=== PATIENT | male | born 1940 | race Caucasian/White ===

== ENCOUNTER 2020-07-09 15:57 | Inpatient (IN) | payer MEDICARE, BC, OTHER ==
[2020-07-09] MEDS ORDERED: Acetaminophen 325 MG TAB PO PRN (18:00)
[2020-07-09] MEDS ORDERED: Ondansetron ODT 4 MG TAB SL PRN (18:00)
[2020-07-09] MEDS ORDERED: Ondansetron PF 4 MG/2 ML Vial IVP PRN (18:00)
[2020-07-09 18:15] VITALS: BMI 25.3
[2020-07-09 18:38] LABS: #Eosinphils 0.1 thou/uL (0.0-0.7); #Lymphocytes 1.1 thou/uL (1.20-3.40); #Neutrophils 13.9 thou/uL (1.40-6.50); %Basophils 0.2 % (0.0-1.0); %Eosinophils 0.4 % (0.0-10.0); %Lymphocytes 6.6 % (21.0-51.0); %Monocytes 6.4 % (0.0-10.0); %Neutrophils 86.5 % (42.0-75.0); Hemoglobin 8.4 g/dL (14.0-18.0); Mean Corpuscular HGB CONC 31.9 g/dL (32.0-36.0); Mean Corpuscular Hemoglobin 26.7 pg (27.0-31.0); Mean Corpuscular Volume 83.7 fL (78.0-98.0); Mean Platelet Volume 6.2 fL (7.4-10.4); Platelet Count 572 thou/uL (130-400); RBC Distribution Width 13.9 % (11.5-14.5); Red Blood Cell (RBC) Count 3.12 mill/uL (4.70-6.10); White Blood Cell (WBC) Count 16.1 thou/uL (4.8-10.8)
[2020-07-09 19:21] LABS: ALT (SGPT) 13 U/L (8-55); AST (SGOT) 15 U/L (5-34); Albumin 2.7 g/dL (3.4-4.8); Alkaline Phosphatase 94 U/L (40-110); Anion Gap 13 mmol/L (10-20); BUN (Urea Nitrogen) 28 mg/dL (8.4-25.7); Bilirubin, Total 0.3 mg/dL (0.2-1.2); Calc. Creatinine Clearance 50 mL/min (70-130); Calcium 8.5 mg/dL (7.8-10.44); Carbon Dioxide 27 mmol/L (23-31); Chloride 99 mmol/L (98-107); Estimated GFR-MDRD 53; Globulin 3.8 g/dL (2.4-3.5); Glucose 202 mg/dL (83-110); Potassium 4.2 mmol/L (3.5-5.1); Protein, Total 6.5 g/dL (5.8-8.1); Sodium 135 mmol/L (136-145)
[2020-07-09] MEDS ORDERED: Acetaminophen 500 MG TAB PO PRN (20:00)
[2020-07-09] MEDS ORDERED: Dextrose 50% Abboject 50 ML SYRINGE SLOW IVP PRN (20:03)
[2020-07-09] MEDS ORDERED: Dextrose 5% in Water 1,000 ML IV PRN (20:03)
[2020-07-09] MEDS: traMADol HCl 50 MG TAB PO PRN (20:46)
[2020-07-09] MEDS: Furosemide 40 MG/4 ML VIAL SLOW IVP SCH (20:47)
[2020-07-09] MEDS: Insulin Glargine 25 UNITS in Pre-Filled Syringe 1 EACH SC SCH (20:53)
[2020-07-09] MEDS ORDERED: Non-Formulary Item 1 EACH (Insulin Glargine,Hum.Rec.Anlog [Lantus Solostar] 100 UNIT/ML P SC SCH (21:00)
[2020-07-09] MEDS ORDERED: Famotidine 20 MG TAB PO SCH (21:00)
[2020-07-09] MEDS ORDERED: Cefepime 2 GM in Sodium Chloride 0.9% 100 ML IVPB SCH (21:00)
[2020-07-09] MEDS ORDERED: Furosemide 40 MG/4 ML VIAL SLOW IVP SCH (21:00)
[2020-07-09] MEDS ORDERED: Vancomycin HCl 1.5 GM in Sodium Chloride 0.9% 250 ML 300 ML IVPB SCH (21:00)
[2020-07-09] MEDS: Insulin Regular 300 UNITS/3 ML VIAL SC PRN (21:10)
--- NOTE | 2020-07-09 21:48 | HP ---
PRIMARY CARE PHYSICIAN: Dr. Merritt. CHIEF COMPLAINT: Lower leg swelling. HISTORY OF PRESENT ILLNESS: The patient is an 80-year-old male with past medical history significant for diabetes, hypertension, urinary retention, and GERD who presented to the ER today for significant bilateral lower extremity swelling with weeping. He states the swelling has been going on for about 3 to 4 weeks and he has had weeping of fluid for the past few days. The left leg is considerably worse and has more erythema. The patient states the left leg has been swollen ever since he had his CABG years ago, but not to the extent that it is now. He denies any fevers, chest pain, abdominal pain, changes in medications, injury, or trauma to the legs. The patient does present with an indwelling Houser catheter. He states that it was placed 6 to 7 days ago due to urine retention. He recently had a prostate biopsy on June 25 of this year, but he is still awaiting the results. It was also noted in the ER that the patient had a history of a hemoglobin in the 14s, but today it was 7.8. The patient does not note any blood in his stools, but states that he has been passing smaller and fewer bowel movements than before. The patient is pale in color, but he states this is normal. He did not complain that he has become any weaker recently. Today in the [place] [facility], they completed the abdomen and pelvis CT, hip x-ray, chest x-ray, lab work, and medication administration. They gave him hydrocodone with Tylenol 1 tablet, vancomycin IV 1.5 g, cefepime IV 2 g, and furosemide 40 mg IV prior to his transfer to [place] as a direct admit. PAST MEDICAL HISTORY: Hypertension; CAD; diabetes type 2, on insulin; GERD; hyperlipidemia; venous insufficiency in his left leg; and spondylosis of lumbar spine. PAST SURGICAL HISTORY: CABG, recent prostate biopsy. ALLERGIES: NO KNOWN DRUG ALLERGIES. CURRENT HOME MEDICATIONS: 1. Tramadol 50 mg p.o. q.8 hours. 2. Metoprolol 25 mg p.o. daily. 3. Tylenol 1000 mg p.o. q.6 hours p.r.n. 4. Rosuvastatin calcium 20 mg p.o. daily. 5. Pantoprazole 40 mg p.o. b.i.d. 6. Regular insulin 5 units subcu daily with meals. 7. Lantus 25 units subcu at night. 8. Metformin 1000 mg p.o. b.i.d. 9. Glipizide 10 mg p.o. b.i.d. 10. Flomax 0.4 mg p.o. daily. SOCIAL HISTORY: The patient lives at home alone. He denies any alcohol, drug, or smoking history. FAMILY HISTORY: Nothing contributory to this hospital visit. REVIEW OF SYSTEMS: All other review of systems are negative unless noted in the HPI. PHYSICAL EXAMINATION: VITAL SIGNS: Temperature 97.8, pulse 99, respiratory rate 18, O2 saturation 98% on room air, blood pressure 142/65. Afebrile, normal pulse. Vital signs stable. GENERAL: Pale-appearing, appears pain-free. HEENT: Head; atraumatic, normocephalic. Eyes; extraocular muscles intact. PERRLA. NECK: Normal range of motion. Trachea midline. RESPIRATORY: Clear to auscultation bilaterally. No rhonchi, no wheezes, no rales. CARDIOVASCULAR: Regular rate and rhythm. No murmurs, no rubs, no gallops. ABDOMEN: Nontender. No distention. No guarding. No rigidity. Bowel sounds normal. EXTREMITIES: Upper extremity normal. Inspection normal. Range of motion normal. Radial pulse normal. Lower extremity, extensive edema bilaterally, left worse than right. Cellulitis present in the upper portion of his lower left leg, weeping from both legs. LABORATORY DATA AND IMAGING DATA: Abdomen and pelvis CT with contrast showed an obstructive uropathy with severe bilateral hydronephrosis and hydroureters. The prostate is enlarged and has progressive enlargement and nodularity since the prior exam and involves the floor of the bladder. Prostatic neoplasm with invasion of the floor the bladder should be excluded. This is in turn producing bilateral UVJ obstruction and hydronephrosis. Severe bladder wall thickening. Urology consultation is recommended. Hip x-ray showed mild osteoarthritis of left hip and second hip x-ray shows moderate osteoarthritis of the right hip. Chest x-ray showed no acute cardiopulmonary findings. White blood cells 14.3, hemoglobin 7.8, hematocrit 26.6. D-dimer 0.55. Chemistry shows sodium 138, potassium 4.5, BUN 28, creatinine 1.15, GFR 61, glucose 155, calcium 8.5. CK 18, CRP 6.93, BNP 101.7. Urine shows protein and blood. It does show 1+ bacteria along with some squamous epithelial cells. IMPRESSION AND PLAN: 1. Lower extremity cellulitis. We will continue patient on IV antibiotics. The patient has been afebrile; however, he does have leukocytosis. We will continue to trend his labs to see if antibiotics are improving his infection. Wound Care Team has been asked to come and see his legs if they can offer any systems or treatment. We will obtain bilateral venous Doppler to rule out DVT in legs. 2. Anemia. Iron studies have been ordered for the patient along with occult blood stool sample to see if we can pinpoint if the patient is having a GI bleed or losing blood elsewhere. We will continue to monitor patient's labs. We will monitor for signs of bleeding. 3. Urinary retention and possible prostate cancer. Urology has been consulted for the morning. Hopefully, we will be able to receive the patient's prostate biopsy results soon and can decide course of treatment from there. We will continue the patient's home Houser. Urine culture to be sent. 4. Diabetes type 2. Restart patient on home medications except for metformin. We will hold that in lieu of receiving IV contrast with a CT. We will be able to start at a later time during hospital stay. Continue to monitor kidney levels. Monitor Accu-Cheks before meals and at bedtime mild sliding scale insulin. 5. Hypertension. Restart patient on his home medications. Monitor vital signs q.shift. 6. Hyperlipidemia. Restart patient on his home medications. 7. The patient wishes to be DNAR. His surrogate decision maker is his sister, Remigio Steen. 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 The patient has been discussed with Dr. Ruth. Job ID: [id number]
[2020-07-09] MEDS ORDERED: Vancomycin 1.5 GRAM/300 ML BAG 1.5 GM in Premix Bag 1 BAG IVPB SCH (22:00)
--- NOTE | 2020-07-09 22:24 | ULT ---
BILATERAL LOWER EXTREMITY VENOUS DUPLEX EXAM: Date: 07/09/2020 HISTORY: Bilateral leg pain and swelling. FINDINGS: Soft tissue edema changes are seen in both legs. Real-time color Doppler of right and left lower extr emity was performed from groin to calf. This includes evaluation of the common femoral, superficial a nd profunda femoral, saphenous, popliteal, and posterior tibial veins. This shows patent deep venous systems bilaterally. There is normal compressibility and augmentation. There is no evidence of deep v enous thrombosis. IMPRESSION: No evidence of deep venous thrombosis of either lower extremity. POS: OFF
[2020-07-10] MEDS: Acetaminophen 500 MG TAB PO PRN ×2 (01:59→15:37)
[2020-07-10 03:57] LABS: #Eosinphils 0.1 thou/uL (0.0-0.7); #Lymphocytes 1.2 thou/uL (1.20-3.40); #Neutrophils 9.8 thou/uL (1.40-6.50); %Basophils 0.2 % (0.0-1.0); %Eosinophils 0.7 % (0.0-10.0); %Lymphocytes 9.8 % (21.0-51.0); %Monocytes 8.1 % (0.0-10.0); %Neutrophils 81.2 % (42.0-75.0); Hemoglobin 7.9 g/dL (14.0-18.0); Mean Corpuscular HGB CONC 31.3 g/dL (32.0-36.0); Mean Corpuscular Hemoglobin 25.9 pg (27.0-31.0); Mean Platelet Volume 6.2 fL (7.4-10.4); Platelet Count 548 thou/uL (130-400); RBC Distribution Width 13.8 % (11.5-14.5); Red Blood Cell (RBC) Count 3.04 mill/uL (4.70-6.10)
[2020-07-10 04:13] LABS: Anion Gap 14 mmol/L (10-20); BUN (Urea Nitrogen) 34 mg/dL (8.4-25.7); Calc. Creatinine Clearance 41 mL/min (70-130); Calcium 8.4 mg/dL (7.8-10.44); Carbon Dioxide 29 mmol/L (23-31); Chloride 96 mmol/L (98-107); Estimated GFR-MDRD 43; Glucose 145 mg/dL (83-110); Potassium 4.2 mmol/L (3.5-5.1); Sodium 135 mmol/L (136-145)
[2020-07-10] MEDS: Insulin Regular 300 UNITS/3 ML VIAL SC SCH (08:18)
[2020-07-10] MEDS: Furosemide 40 MG/4 ML VIAL SLOW IVP SCH ×2 (08:20→20:25)
[2020-07-10] MEDS: glipiZIDE 10 MG TAB PO SCH ×2 (08:20→17:09)
[2020-07-10] MEDS: Tamsulosin HCl 0.4 MG CAP PO SCH (08:21)
[2020-07-10] MEDS: Rosuvastatin 20 MG TAB PO SCH (08:21)
[2020-07-10] MEDS: Insulin Regular 300 UNITS/3 ML VIAL SC PRN ×2 (11:36→17:09)
[2020-07-10 12:05] LABS: SARS-CoV-2 MS2 Positive; SARS-CoV-2 N Gene Negative; SARS-CoV-2 S Gene Negative; SARS-CoV-2 by NAA Not Detected (NotDetected); SARS-CoV-2 orf1ab Negative
[2020-07-10] MEDS: Cefepime 2 GM in Sodium Chloride 0.9% 100 ML IVPB SCH (14:12)
[2020-07-10] MEDS: Vancomycin 1.5 GRAM/300 ML BAG 1.5 GM in Premix Bag 1 BAG IVPB SCH (14:50)
--- NOTE | 2020-07-10 16:02 | PDOC.HOSPP ---
- Subjective Encounter Date: 07/10/20 Encounter Time: 15:58 Subjective: Mr. Villeda was seen today in follow-up of venous stasis, with cellulitis. He does not have any new complaints. He says his legs are less painful today. The swelling is better. - Objective Vital Signs & Weight: Vital Signs (12 hours) Temp Pulse Resp BP BP Pulse Ox 07/10/20 15:44 97.5 F L 97 18 130/60 96 07/10/20 11:41 97.8 F 106 H 18 116/68 98 07/10/20 08:00 98 07/10/20 07:51 98.2 F 83 18 126/60 98 Weight Admit Weight 171 lb 12.8 oz Weight 171 lb 12.8 oz I&O: 07/09/20 07/10/20 07/11/20 06:59 06:59 06:59 Intake Total 1500 Output Total 2500 1250 Balance -1000 -1250 Result Diagrams: 07/10/20 03:38 07/10/20 03:38 Additional Labs: Accuchecks 07/10/20 07/10/20 07/09/20 11:34 05:51 21:13 POC Glucose 228 H 119 H 326 H Hospitalist ROS - Medication Medications: Active Medications Generic Name Dose Route Start Last Admin Trade Name Freq PRN Reason Stop Dose Admin Acetaminophen 1,000 mg 07/09/20 20:04 07/10/20 15:37 Acetaminophen 500 Mg Tab PO 1,000 mg Q6H PRN Administration Mild Pain (1-3) Furosemide 40 mg 07/09/20 21:00 07/10/20 08:20 Furosemide 40 Mg/4 Ml Vial SLOW IVP 40 mg Q12HR BRODERICK Administration Glipizide 10 mg 07/10/20 08:00 07/10/20 08:20 Glipizide 10 Mg Tab PO 10 mg BID-WM BRODERICK Administration Insulin Glargine 25 units/ 0.25 mls @ 0 mls/hr 07/09/20 21:00 07/09/20 20:53 Miscellaneous Medication SC 0.25 mls HS BRODERICK Administration Vancomycin HCl 1.5 gm/ Device 300 mls @ 200 mls/hr 07/10/20 15:00 07/10/20 14:50 IVPB 300 mls 1500 BRODERICK Administration Cefepime HCl 2 gm/ Sodium 100 mls @ 200 mls/hr 07/10/20 14:00 07/10/20 14:12 Chloride IVPB 100 mls 1400 BRODERICK Administration Insulin Human Regular 0 units 07/09/20 20:03 07/10/20 11:36 Insulin Regular 300 Units/3 Ml Vial SC 3 unit .MILD SLIDING SCALE PRN Administration Mild Correctional Scale Insulin Human Regular 0 units 07/09/20 20:03 07/09/20 21:10 Insulin Regular 300 Units/3 Ml Vial SC 4 unit .BEDTIME SLIDING SC PRN Administration Bedtime Correctional Scale Insulin Human Regular 5 units 07/10/20 07:30 07/10/20 08:18 Insulin Regular 300 Units/3 Ml Vial SC 5 unit DAILY-AC BRODERICK Administration Metoprolol Succinate 25 mg 07/10/20 09:00 07/10/20 08:20 Metoprolol Succinate Xl 25 Mg Tab PO 25 mg DAILY BRODERICK Administration Pantoprazole Sodium 40 mg 07/09/20 21:00 07/10/20 08:21 Pantoprazole 40 Mg Tab PO 40 mg BID BRODERICK Administration Rosuvastatin Calcium 20 mg 07/10/20 09:00 07/10/20 08:21 Rosuvastatin 20 Mg Tab PO 20 mg DAILY BRODERICK Administration Tamsulosin HCl 0.4 mg 07/10/20 09:00 07/10/20 08:21 Tamsulosin Hcl 0.4 Mg Cap PO 0.4 mg DAILY BRODERICK Administration Tramadol HCl 50 mg 07/09/20 20:04 07/09/20 20:46 Tramadol Hcl 50 Mg Tab PO 50 mg Q8H PRN Administration Moderate Pain (4-6) - Exam Eye: PERRL, anicteric sclera Heart: RRR, no murmur, no gallops, no rubs, normal peripheral pulses Respiratory: CTAB, no wheezes, no rales, no ronchi, normal chest expansion Gastrointestinal: soft, non-tender, non-distended, normal bowel sounds, no palpable masses, no hepatomegaly, no splenomegaly Extremities: no clubbing (legs are dressed- pictures noted), 1+ LE edema Hosp A/P (1) Cellulitis of both lower extremities Code(s): L03.115 - CELLULITIS OF RIGHT LOWER LIMB; L03.116 - CELLULITIS OF LEFT LOWER LIMB Status: Acute (2) Chronic venous stasis Code(s): I87.8 - OTHER SPECIFIED DISORDERS OF VEINS Status: Acute (3) CAD (coronary artery disease) Code(s): I25.10 - ATHSCL HEART DISEASE OF [place] CORONARY ARTERY W/O ANG PCTRS Status: Acute (4) Diabetes mellitus type 2 in nonobese Code(s): E11.9 - TYPE 2 DIABETES MELLITUS WITHOUT COMPLICATIONS Status: Chronic (5) Hypertension Code(s): I10 - ESSENTIAL (PRIMARY) HYPERTENSION Status: Chronic (6) Obstructive uropathy Code(s): N13.9 - OBSTRUCTIVE AND REFLUX UROPATHY, UNSPECIFIED Status: Acute (7) Prostate enlargement Code(s): N40.0 - BENIGN PROSTATIC HYPERPLASIA WITHOUT LOWER URINRY TRACT SYMP Status: Chronic (8) Acute kidney injury Code(s): N17.9 - ACUTE KIDNEY FAILURE, UNSPECIFIED Status: Acute - Plan * Chronic venous stasis changes with cellulitis- continue Cefepime and Vancomycin * Continue local wound care * DM- blood glucose is a bit labile- continue his home medications as well as SSI * Obstructive Uropathy with bilateral hydronephrosis due to prostatic enlargement- Urology has been consulted- continue connell * Await Urology input * HTN- blood pressure is controlled * CAD- stable
--- NOTE | 2020-07-10 20:11 | CON ---
DATE OF CONSULTATION: 07/10/2020 REASON FOR CONSULTATION: Hydronephrosis. CHIEF COMPLAINT: Leg wounds. HISTORY OF PRESENT ILLNESS: This is an 80-year-old male, who I have been following since June 20. At that point, he was referred to me from [facility], where he had been seen for retention and had a catheter placed draining over a liter. He has no prior history of bladder infections, retention, or prostate surgeries. He failed his initial void trial and upon further workup, he was found to have an abnormal MICHELLE. 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 I was unable to adequately see his ureters. However, recent creatinine was normal. He also underwent transrectal ultrasound biopsy of his pelvic mass. Early pathology suggest colon versus bladder cancer. Since his initial visit with me. I have been encouraging him to call his primary care provider to be seen about his leg wounds. However, he was unable to get through their office and decided he would wait for his visit in June. He was seen at [facility] yesterday for his leg wounds and CT scan at that time showed new onset bilateral hydronephrosis with normal creatinine of 1.15. He tells me that since his biopsy, he has not had fevers, rectal bleeding, or hematuria. Today, he denies flank pain, nausea, vomiting, or suprapubic pain. He has had a Houser catheter placed. However, his creatinine has continued to rise and is now 1.57 as of this morning. PAST MEDICAL HISTORY: Coronary artery disease status post CABG, diabetes, hypertension, and recent urinary retention. PAST SURGICAL HISTORY: CABG as listed above and prostate biopsy. ALLERGIES: NO KNOWN ALLERGIES. HOME MEDICATIONS: Reviewed. Pertinent urology medications include Flomax daily. SOCIAL HISTORY: The patient lives alone. Nonsmoker. No substance abuse. FAMILY HISTORY: Reviewed. No history of urologic malignancy. REVIEW OF SYSTEMS: A 12-point review of systems performed, negative except as mentioned in my HPI. PHYSICAL EXAMINATION: VITAL SIGNS: Afebrile, vitals stable. GENERAL: No acute distress, conversant. HEENT: Head, normocephalic and atraumatic. Extraocular movements intact. Sclerae anicteric. NECK: Supple. Trachea midline. Unlabored breathing. Symmetric chest expansion. HEART: Regular rate and rhythm. ABDOMEN: Soft, nontender, and nondistended. No CVA tenderness. No suprapubic tenderness. : Normal exam with Houser catheter in good position draining clear yellow urine. SKIN: Warm and dry. EXTREMITIES: No upper extremity edema, significant lower extremity edema, currently with bandages in place. No cyanosis. NEUROLOGIC: Alert and oriented x3. PSYCHIATRIC: Normal mood and affect. LABORATORY DATA: Reviewed. Creatinine 1.57. White count 12. Recent urine, moderate leukocyte esterase; however, this did appear contaminated. Urine culture, no growth at 12 hours. IMAGING DATA: I personally reviewed his CT scan, which does show bilateral hydronephrosis down to the level of the bladder neck or trigone of the bladder. He has a large mass at this point, which appears to be emanating from the prostate. However, this is in contrast to his early pathology results. 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 The patient will need cystoscopy with attempt at stent placement. I explained this procedure in detail to the patient including the risks of bleeding, infection, pain, and inability to place the stents, including the possible need for resection of his trigone. However, I still may be unable to place stents and we would have to consider if nephrostomy tubes are appropriate. We are still waiting on outside review of his recent pathology. N.P.O. after midnight. Job ID: [id number]
[2020-07-10] MEDS: Insulin Glargine 25 UNITS in Pre-Filled Syringe 1 EACH SC SCH (20:25)
[2020-07-10] MEDS: Heparin 5,000 UNITS/ML VIAL SC SCH (20:25)
[2020-07-11] MEDS: Acetaminophen 500 MG TAB PO PRN ×2 (02:04→08:11)
[2020-07-11] MEDS: traMADol HCl 50 MG TAB PO PRN ×2 (02:04→14:37)
[2020-07-11 06:13] LABS: #Lymphocytes 0.7 thou/uL (1.20-3.40); #Monocytes 0.9 thou/uL (0.11-0.59); #Neutrophils 10.7 thou/uL (1.40-6.50); %Basophils 0.4 % (0.0-1.0); %Eosinophils 0.4 % (0.0-10.0); %Lymphocytes 5.9 % (21.0-51.0); %Neutrophils 86.4 % (42.0-75.0); Hemoglobin 8.2 g/dL (14.0-18.0); Mean Corpuscular HGB CONC 31.3 g/dL (32.0-36.0); Mean Corpuscular Hemoglobin 26.1 pg (27.0-31.0); Mean Corpuscular Volume 83.5 fL (78.0-98.0); Platelet Count 547 thou/uL (130-400); Red Blood Cell (RBC) Count 3.15 mill/uL (4.70-6.10); White Blood Cell (WBC) Count 12.4 thou/uL (4.8-10.8)
[2020-07-11 06:36] LABS: Anion Gap 14 mmol/L (10-20); BUN (Urea Nitrogen) 38 mg/dL (8.4-25.7); Calc. Creatinine Clearance 47 mL/min (70-130); Calcium 8.3 mg/dL (7.8-10.44); Carbon Dioxide 28 mmol/L (23-31); Chloride 99 mmol/L (98-107); Estimated GFR-MDRD 49; Glucose 188 mg/dL (83-110); Potassium 3.9 mmol/L (3.5-5.1); Sodium 137 mmol/L (136-145)
[2020-07-11] MEDS: Heparin 5,000 UNITS/ML VIAL SC SCH ×2 (08:08→20:51)
[2020-07-11] MEDS: glipiZIDE 10 MG TAB PO SCH ×2 (08:08→18:36)
[2020-07-11] MEDS: Insulin Regular 300 UNITS/3 ML VIAL SC SCH (08:10)
[2020-07-11] MEDS: Rosuvastatin 20 MG TAB PO SCH (08:11)
[2020-07-11] MEDS: Tamsulosin HCl 0.4 MG CAP PO SCH (08:11)
[2020-07-11] MEDS: Furosemide 40 MG/4 ML VIAL SLOW IVP SCH ×2 (08:11→20:50)
[2020-07-11] MEDS ORDERED: Iothalamate Meglumine 60% 50 ML VIAL FS ONE (09:36)
[2020-07-11] MEDS ORDERED: Fentanyl 100 MCG/2 ML VIAL ONE ×3 (09:44→12:06)
[2020-07-11] MEDS ORDERED: Norepinephrine 4 MG/4 ML VIAL ONE (09:44)
[2020-07-11] MEDS ORDERED: PROPOFOL 200 MG/20 ML VIAL ONE (10:47)
[2020-07-11] MEDS ORDERED: Lidocaine 1% PF 5 ML VIAL ONE (10:47)
[2020-07-11] MEDS ORDERED: PHENYLEPHRINE-NS 100 MCG/ML 10 ML SYRINGE ONE (10:47)
[2020-07-11] MEDS ORDERED: Promethazine HCl 25 MG/ML VIAL SLOW IVP PRN (11:42)
[2020-07-11] MEDS ORDERED: PACU-Morphine 4MG/ML VIAL SLOW IVP PRN (11:42)
[2020-07-11] MEDS ORDERED: Ondansetron HCl/PF 4 MG/2 ML Vial IVP PRN (11:42)
[2020-07-11] MEDS ORDERED: Promethazine HCl 25 MG/ML VIAL IM PRN (11:42)
[2020-07-11] MEDS ORDERED: Oxybutynin 5 MG TAB ONE (12:18)
[2020-07-11] MEDS ORDERED: Oxybutynin 5 MG TAB PO PRN (12:34)
[2020-07-11] MEDS: Cefepime 2 GM in Sodium Chloride 0.9% 100 ML IVPB SCH (14:37)
--- NOTE | 2020-07-11 14:48 | PDOC.HOSPP ---
- Subjective Encounter Date: 07/11/20 Encounter Time: 14:46 Subjective: Mr. Villeda was seen today in follow-up of cellulitis of the lower extremities, and urine retention. He notes improvement in his lower extremities, less pain. - Objective Vital Signs & Weight: Vital Signs (12 hours) Temp Pulse Resp BP Pulse Ox 07/11/20 08:00 98.4 F 93 16 108/68 97 Weight Admit Weight 171 lb 12.8 oz Weight 171 lb 12.8 oz I&O: 07/10/20 07/11/20 07/12/20 06:59 06:59 06:59 Intake Total 1500 1380 2170 Output Total 2500 3500 3495 Balance -1000 -2120 -355 Result Diagrams: 07/11/20 06:03 07/11/20 06:03 Additional Labs: Accuchecks 07/11/20 07/10/20 07/10/20 05:18 20:13 15:55 POC Glucose 181 H 196 H 248 H Hospitalist ROS - Medication Medications: Active Medications Generic Name Dose Route Start Last Admin Trade Name Freq PRN Reason Stop Dose Admin Acetaminophen 1,000 mg 07/09/20 20:04 07/11/20 08:11 Acetaminophen 500 Mg Tab PO 1,000 mg Q6H PRN Administration Mild Pain (1-3) Furosemide 40 mg 07/09/20 21:00 07/11/20 08:11 Furosemide 40 Mg/4 Ml Vial SLOW IVP 40 mg Q12HR BRODERICK Administration Glipizide 10 mg 07/10/20 08:00 07/11/20 08:08 Glipizide 10 Mg Tab PO Not Given BID- BRODERICK Heparin Sodium (Porcine) 5,000 units 07/10/20 21:00 07/11/20 08:08 Heparin 5,000 Units/Ml Vial SC Not Given BID BRODERICK Insulin Glargine 25 units/ 0.25 mls @ 0 mls/hr 07/09/20 21:00 07/10/20 20:25 Miscellaneous Medication SC 0.25 mls HS BRODERICK Administration Vancomycin HCl 1.5 gm/ Device 300 mls @ 200 mls/hr 07/10/20 15:00 07/10/20 14:50 IVPB 300 mls 1500 BRODERICK Administration Cefepime HCl 2 gm/ Sodium 100 mls @ 200 mls/hr 07/10/20 14:00 10/14/20 14:37 Chloride IVPB 100 mls 1400 BRODERICK Administration Insulin Human Regular 0 units 07/09/20 20:03 07/10/20 17:09 Insulin Regular 300 Units/3 Ml Vial SC 3 unit .MILD SLIDING SCALE PRN Administration Mild Correctional Scale Insulin Human Regular 0 units 07/09/20 20:03 07/09/20 21:10 Insulin Regular 300 Units/3 Ml Vial SC 4 unit .BEDTIME SLIDING SC PRN Administration Bedtime Correctional Scale Insulin Human Regular 5 units 07/10/20 07:30 07/11/20 08:10 Insulin Regular 300 Units/3 Ml Vial SC 5 unit DAILY-AC BRODERICK Administration Metoprolol Succinate 25 mg 07/10/20 09:00 07/11/20 05:09 Metoprolol Succinate Xl 25 Mg Tab PO 25 mg DAILY BRODERICK Administration Pantoprazole Sodium 40 mg 07/09/20 21:00 07/11/20 08:11 Pantoprazole 40 Mg Tab PO 40 mg BID BRODERICK Administration Rosuvastatin Calcium 20 mg 07/10/20 09:00 07/11/20 08:11 Rosuvastatin 20 Mg Tab PO 20 mg DAILY BRODERICK Administration Tamsulosin HCl 0.4 mg 07/10/20 09:00 07/11/20 08:11 Tamsulosin Hcl 0.4 Mg Cap PO 0.4 mg DAILY BRODERICK Administration Tramadol HCl 50 mg 07/09/20 20:04 07/11/20 14:37 Tramadol Hcl 50 Mg Tab PO 50 mg Q8H PRN Administration Moderate Pain (4-6) - Exam Eye: PERRL, anicteric sclera Heart: RRR, no murmur, no gallops, no rubs, normal peripheral pulses Respiratory: CTAB, no wheezes, no rales, no ronchi, normal chest expansion, no tachypnea Gastrointestinal: soft, non-tender, non-distended, normal bowel sounds, no palpable masses, no hepatomegaly Extremities: no cyanosis Hosp A/P (1) Cellulitis of both lower extremities Code(s): L03.115 - CELLULITIS OF RIGHT LOWER LIMB; L03.116 - CELLULITIS OF LEFT LOWER LIMB Status: Acute (2) Chronic venous stasis Code(s): I87.8 - OTHER SPECIFIED DISORDERS OF VEINS Status: Acute (3) CAD (coronary artery disease) Code(s): I25.10 - ATHSCL HEART DISEASE OF [place] CORONARY ARTERY W/O ANG PCTRS Status: Acute (4) Diabetes mellitus type 2 in nonobese Code(s): E11.9 - TYPE 2 DIABETES MELLITUS WITHOUT COMPLICATIONS Status: Chronic (5) Hypertension Code(s): I10 - ESSENTIAL (PRIMARY) HYPERTENSION Status: Chronic (6) Obstructive uropathy Code(s): N13.9 - OBSTRUCTIVE AND REFLUX UROPATHY, UNSPECIFIED Status: Acute (7) Prostate enlargement Code(s): N40.0 - BENIGN PROSTATIC HYPERPLASIA WITHOUT LOWER URINRY TRACT SYMP Status: Chronic (8) Acute kidney injury Code(s): N17.9 - ACUTE KIDNEY FAILURE, UNSPECIFIED Status: Acute - Plan * Chronic venous stasis changes with cellulitis- continue Cefepime and Vancomycin * Cultures from the wound are growing gram negative rods * Continue local wound care * DM- blood glucose is stable * Obstructive Uropathy - he is s/p cystoscopy and STENT placement * HTN- blood pressure is stable * CAD- stable
[2020-07-11] MEDS: Vancomycin 1.5 GRAM/300 ML BAG 1.5 GM in Premix Bag 1 BAG IVPB SCH (15:54)
--- NOTE | 2020-07-11 17:06 | OP ---
DATE OF PROCEDURE: 07/11/2020 PREOPERATIVE DIAGNOSES: Bladder neck mass, bilateral hydronephrosis. POSTOPERATIVE DIAGNOSES: Bladder neck mass, bilateral hydronephrosis. PROCEDURE PERFORMED: Transurethral resection of large bladder tumor. ANESTHESIA: General. COMPLICATIONS: None. ESTIMATED BLOOD LOSS: Minimal. SPECIMENS: Bladder tumor. DESCRIPTION OF PROCEDURE: After informed consent, the patient was taken to the operating room, transferred to the table under his own power. Anesthesia was established. A time-out was performed showing the correct patient, site, and procedure. Preoperative antibiotics were administered. He was prepped and draped in the lithotomy position. I began by inserting the rigid cystoscope through the urethra noting normal course and caliber of the urethra into the prostate noting coapting lateral lobes and edematous/bullous tissue almost circumferentially around the bladder neck. The scope was passed beyond this. However, I was unable to identify any normal trigone anatomy and certainly could not identify the ureters. The remainder of his bladder was normal without mucosal abnormalities. I then switched to the rigid resectoscope and resected the tumor at the bladder neck circumferentially. This tumor based on his digital rectal exam is not resectable and so I attempted to simply trim it down to level with the rest of the bladder mucosa. Meticulous hemostasis was then achieved and the bladder specimen removed with the [id number] evacuator and passed off. The scope was then withdrawn and a 22-Turkish 3-way Houser catheter placed with 30 mL instilled in the balloon. CBI was connected and was running clear on slow drip. He was then awoken from anesthesia, transferred back to his hospital bed and taken to PACU in stable condition, where he will return to the floor upon recovery. Job ID: [id number]
[2020-07-11] MEDS ORDERED: Sodium Chloride 0.9% 500 ML IV SCH (17:15)
[2020-07-11] MEDS: Insulin Glargine 25 UNITS in Pre-Filled Syringe 1 EACH SC SCH (20:51)
[2020-07-11] MEDS: Insulin Regular 300 UNITS/3 ML VIAL SC PRN (20:58)
[2020-07-12] MEDS: Acetaminophen 500 MG TAB PO PRN ×4 (01:32→21:36)
[2020-07-12 05:41] LABS: #Monocytes 1.1 thou/uL (0.11-0.59); #Neutrophils 11.7 thou/uL (1.40-6.50); %Basophils 0.1 % (0.0-1.0); %Eosinophils 0.2 % (0.0-10.0); %Lymphocytes 6.9 % (21.0-51.0); %Monocytes 7.7 % (0.0-10.0); %Neutrophils 85.1 % (42.0-75.0); Hemoglobin 7.9 g/dL (14.0-18.0); Mean Corpuscular HGB CONC 31.1 g/dL (32.0-36.0); Mean Corpuscular Hemoglobin 25.7 pg (27.0-31.0); Mean Corpuscular Volume 82.7 fL (78.0-98.0); Mean Platelet Volume 6.2 fL (7.4-10.4); Platelet Count 595 thou/uL (130-400); RBC Distribution Width 14.2 % (11.5-14.5); Red Blood Cell (RBC) Count 3.08 mill/uL (4.70-6.10); White Blood Cell (WBC) Count 13.8 thou/uL (4.8-10.8)
[2020-07-12 06:09] LABS: Anion Gap 12 mmol/L (10-20); BUN (Urea Nitrogen) 39 mg/dL (8.4-25.7); Calc. Creatinine Clearance 44 mL/min (70-130); Carbon Dioxide 27 mmol/L (23-31); Chloride 99 mmol/L (98-107); Estimated GFR-MDRD 46; Glucose 166 mg/dL (83-110); Potassium 3.4 mmol/L (3.5-5.1); Sodium 135 mmol/L (136-145)
[2020-07-12] MEDS: Insulin Regular 300 UNITS/3 ML VIAL SC PRN ×2 (07:07→17:33)
[2020-07-12] MEDS: Insulin Regular 300 UNITS/3 ML VIAL SC SCH (07:11)
[2020-07-12] MEDS: Tamsulosin HCl 0.4 MG CAP PO SCH (09:31)
[2020-07-12] MEDS: Rosuvastatin 20 MG TAB PO SCH (09:31)
[2020-07-12] MEDS: Heparin 5,000 UNITS/ML VIAL SC SCH ×2 (09:31→21:36)
[2020-07-12] MEDS: glipiZIDE 10 MG TAB PO SCH ×2 (09:31→16:48)
[2020-07-12] MEDS: Furosemide 40 MG/4 ML VIAL SLOW IVP SCH ×2 (09:31→21:36)
--- NOTE | 2020-07-12 11:05 | CON ---
DATE OF CONSULTATION: REASON FOR CONSULT: Bladder cancer. HISTORY OF PRESENT ILLNESS: Mr. Villeda is a very pleasant 80-year-old gentleman, who in May, went to the emergency room for urinary retention. A catheter was placed and he was referred to Dr. Basilio. He was noted to have a retroperitoneal mass on scan. He underwent a prostate biopsy, which was positive for poorly differentiated adenocarcinoma, primary either prostate, bladder, or GI origin. He presented to the emergency room on the July 09 with bilateral lower extremity cellulitis. He was admitted for antibiotics. Due to the inconclusive biopsy and hydronephorosis. Dr. Basilio performed a cystoscopy yesterday. There was a bladder neck mass noted. Biopsies were taken and currently pending. He was unable to place ureter stents. The patient is resting comfortably at bedside. He has a Houser catheter in place and has undergone continuous bladder irrigation. There was no evidence of bleeding. PAST MEDICAL HISTORY: 1. Coronary artery disease. 2. Diabetes. 3. Hypertension. 4. Urinary retention. PAST SURGICAL HISTORY: 1. CABG. 2. Prostate biopsy. ALLERGIES: NO KNOWN DRUG ALLERGIES. HOME MEDICATIONS: 1. Flomax. 2. Glipizide. 3. Glucophage. 4. Insulin. 5. Metoprolol. 6. Protonix. 7. Rosuvastatin. 8. Tramadol. 9. Tylenol. FAMILY HISTORY: No known history of malignancy. SOCIAL HISTORY: Lives alone in [place]. No alcohol, tobacco, or illicit drug use. REVIEW OF SYSTEMS: A 12-point review of systems is negative except for noted in HPI. PHYSICAL EXAMINATION: VITAL SIGNS: Temperature is 97.4, pulse is 85, respiratory rate is 16, BP is 131/63, and he is 99% on room air. GENERAL: This is a well-developed, well-nourished male, no acute distress. HEENT: Normocephalic and atraumatic. Pupils are equal and reactive to light. NECK: Supple. CV: Regular rate and rhythm. LUNGS: Clear. ABDOMEN: Soft. Bowel sounds are positive. EXTREMITIES: He has 2+ bilateral lower extremities. SKIN: He has dressing with Chris wraps to bilateral lower extremities. NEUROLOGIC: Nonfocal. PERTINENT LABORATORY DATA AND X-RAYS: Current WBCs are 13.8, hemoglobin 7.9, hematocrit 25.5, platelet count 595,000, neutrophils 84.1, and lymphocytes 6.9%. Sodium is 135, potassium is 3.4, chloride is 99, CO2 is 27, BUN is 39, creatinine is 1.46, calcium is 8, bilirubin is 0.3, AST is 15, ALT is 13, alkaline phosphatase is 94, serum total protein is 6.5, albumin is 2.7, and globulin is 3.8. BNP is 101. Urine showed 1+ bacteria, positive leukocyte esterase and blood. COVID PCR negative. CT of the abdomen and pelvis showed obstructive uropathy with severe bilateral hydronephrosis, showed enlarged prostate and severe bladder wall thickening. His micro was positive for gram-negative rods. ASSESSMENT: 1. Bladder cancer. 2. Lower extremity cellulitis. DISCUSSION: Case has been discussed with Dr. Foreman. The patient likely has locally advanced stage 3 disease, although he needs further scans. Per Dr. Payne, he is not a surgical candidate. He would be a candidate for treatment, which includes chemoradiotherapy. Unfortunately, the patient states that he does not drive. He lives alone and has no reliable transportation to get him to treatments. He does not feel he would tolerate treatment. He is considering hospice. Encouraged the patient to discuss further with his sister. I provided clinic information for him and recommended that he follow up with one of our doctors in the outpatient setting to discuss all options prior to making a decision to not seek treatment. We will have Palliative Care to see the patient. Thank you for the consult. Job ID: [id number]
--- NOTE | 2020-07-12 13:49 | PRG ---
DATE OF SERVICE: 07/12/2020 SUBJECTIVE: No acute events overnight. No problems with the catheter. Does report that the catheter is somewhat uncomfortable for him. He denies flank pain or nausea. PHYSICAL EXAMINATION: GENERAL: No acute distress. Unlabored breathing. ABDOMEN: Soft, nontender, nondistended. No flank tenderness. No suprapubic tenderness. Houser catheter in good position, draining clear urine off CBI. LABORATORY DATA: Lab work reviewed. Hemoglobin 7.9. Creatinine 1.46. Urine culture, no growth. ASSESSMENT AND PLAN: Postoperative day #1, transurethral resection of large bladder tumor. Bilateral hydronephrosis due to trigonal invasion of tumor. The patient and I discussed the fact that I will not be able to place stents through his bladder to help decompress his kidneys and that I expect this will cause worsening kidney function over time, which will if untreated be the cause of his . He expressed clear understanding of this and when I discussed his remaining option of bilateral nephrostomy tubes, he told me that he would not want to do this under any circumstances and understands that he will almost certainly from renal failure and that setting. We await the results of his pathology from his surgery yesterday to perhaps help guide systemic therapy, although this may not be an option given what I assume will be elevating creatinine over the coming weeks. I did encourage him to consider hospice as an option, which he seems open to, but would like to get the pathology results first. Houser catheter removed. Job ID: [id number]
[2020-07-12] MEDS: Cefepime 2 GM in Sodium Chloride 0.9% 100 ML IVPB SCH (15:59)
--- NOTE | 2020-07-12 16:20 | PDOC.HOSPP ---
- Subjective Encounter Date: 07/12/20 Encounter Time: 16:18 Subjective: Mr. Villeda was seen today in follow-up of urinary retention, and cellulitis of both lower extremities. He does not have any complaints. - Objective Vital Signs & Weight: Vital Signs (12 hours) Temp Pulse Resp BP Pulse Ox 07/12/20 06:58 97.4 F L 85 16 131/63 99 Weight Admit Weight 171 lb 12.8 oz Weight 171 lb 12.8 oz I&O: 07/11/20 07/12/20 07/13/20 06:59 06:59 06:59 Intake Total 1380 2410 800 Output Total 3500 5375 Balance -2120 -2969 800 Result Diagrams: 07/12/20 05:32 07/12/20 05:32 Additional Labs: Accuchecks 07/12/20 07/11/20 07/11/20 12:56 19:57 16:20 POC Glucose 191 H 270 H 125 H Hospitalist ROS - Medication Medications: Active Medications Generic Name Dose Route Start Last Admin Trade Name Freq PRN Reason Stop Dose Admin Acetaminophen 1,000 mg 07/09/20 20:04 07/12/20 16:01 Acetaminophen 500 Mg Tab PO 1,000 mg Q6H PRN Administration Mild Pain (1-3) Furosemide 40 mg 07/09/20 21:00 07/12/20 09:31 Furosemide 40 Mg/4 Ml Vial SLOW IVP 40 mg Q12HR BRODERICK Administration Glipizide 10 mg 07/10/20 08:00 07/12/20 09:31 Glipizide 10 Mg Tab PO 10 mg BID-WM BRODERICK Administration Heparin Sodium (Porcine) 5,000 units 07/10/20 21:00 07/12/20 09:31 Heparin 5,000 Units/Ml Vial SC 5,000 units BID BRODERICK Administration Insulin Glargine 25 units/ 0.25 mls @ 0 mls/hr 07/09/20 21:00 07/11/20 20:51 Miscellaneous Medication SC 0.25 mls HS BRODERICK Administration Vancomycin HCl 1.5 gm/ Device 300 mls @ 200 mls/hr 07/10/20 15:00 07/11/20 15:54 IVPB 300 mls 1500 BRODERICK Administration Cefepime HCl 2 gm/ Sodium 100 mls @ 200 mls/hr 07/10/20 14:00 07/12/20 15:59 Chloride IVPB 100 mls 1400 BRODERICK Administration Insulin Human Regular 0 units 07/09/20 20:03 07/12/20 07:07 Insulin Regular 300 Units/3 Ml Vial SC 2 unit .MILD SLIDING SCALE PRN Administration Mild Correctional Scale Insulin Human Regular 0 units 07/09/20 20:03 07/11/20 20:58 Insulin Regular 300 Units/3 Ml Vial SC 3 unit .BEDTIME SLIDING SC PRN Administration Bedtime Correctional Scale Insulin Human Regular 5 units 07/10/20 07:30 07/12/20 07:11 Insulin Regular 300 Units/3 Ml Vial SC 5 unit DAILY-AC BRODERICK Administration Metoprolol Succinate 25 mg 07/10/20 09:00 07/12/20 09:31 Metoprolol Succinate Xl 25 Mg Tab PO 25 mg DAILY BRODERICK Administration Pantoprazole Sodium 40 mg 07/09/20 21:00 07/12/20 09:31 Pantoprazole 40 Mg Tab PO 40 mg BID BRODERICK Administration Rosuvastatin Calcium 20 mg 07/10/20 09:00 07/12/20 09:31 Rosuvastatin 20 Mg Tab PO 20 mg DAILY BRODERICK Administration Sodium Chloride 10 ml 07/11/20 21:00 07/12/20 09:32 Flush - Normal Saline 10 Ml Syringe IVF 10 ml Q12HR BRODERICK Administration Tamsulosin HCl 0.4 mg 07/10/20 09:00 07/12/20 09:31 Tamsulosin Hcl 0.4 Mg Cap PO 0.4 mg DAILY BRODERICK Administration Tramadol HCl 50 mg 07/09/20 20:04 07/11/20 14:37 Tramadol Hcl 50 Mg Tab PO 50 mg Q8H PRN Administration Moderate Pain (4-6) - Exam Eye: PERRL, anicteric sclera Heart: RRR, no murmur, no gallops, no rubs, normal peripheral pulses Respiratory: CTAB, no wheezes, no rales, no ronchi, normal chest expansion, no tachypnea, normal percussion Gastrointestinal: soft, non-tender, non-distended, normal bowel sounds, no palp able masses Extremities: no cyanosis, 1+ LE edema (both legs are wrapped) Hosp A/P (1) Cellulitis of both lower extremities Code(s): L03.115 - CELLULITIS OF RIGHT LOWER LIMB; L03.116 - CELLULITIS OF LEFT LOWER LIMB Status: Acute (2) Chronic venous stasis Code(s): I87.8 - OTHER SPECIFIED DISORDERS OF VEINS Status: Acute (3) CAD (coronary artery disease) Code(s): I25.10 - ATHSCL HEART DISEASE OF [place] CORONARY ARTERY W/O ANG PCTRS Status: Acute (4) Diabetes mellitus type 2 in nonobese Code(s): E11.9 - TYPE 2 DIABETES MELLITUS WITHOUT COMPLICATIONS Status: Chronic (5) Hypertension Code(s): I10 - ESSENTIAL (PRIMARY) HYPERTENSION Status: Chronic (6) Obstructive uropathy Code(s): N13.9 - OBSTRUCTIVE AND REFLUX UROPATHY, UNSPECIFIED Status: Acute (7) Prostate enlargement Code(s): N40.0 - BENIGN PROSTATIC HYPERPLASIA WITHOUT LOWER URINRY TRACT SYMP Status: Chronic (8) Acute kidney injury Code(s): N17.9 - ACUTE KIDNEY FAILURE, UNSPECIFIED Status: Acute - Plan * Chronic venous stasis changes with cellulitis- continue Cefepime and Vancomycin * Cultures from the wound are growing gram negative rods and now a mold species * Will add Diflucan * Continue local wound care * DM- blood glucose is stable * Obstructive Uropathy -Urology evaluation noted- a large bladder mass was removed, but stent were not able to be placed. The mass is highly suspicious for malignancy. The patient is awaiting path results before making any further decisions regarding his care. * HTN- blood pressure is stable * CAD- stable
[2020-07-12] MEDS ORDERED: Potassium Chloride 20 MEQ TAB PO SCH (16:30)
[2020-07-12] MEDS: Vancomycin 1.5 GRAM/300 ML BAG 1.5 GM in Premix Bag 1 BAG IVPB SCH (16:38)
[2020-07-12] MEDS ORDERED: Fluconazole 100 MG TAB PO SCH (16:45)
[2020-07-12] MEDS: Insulin Glargine 25 UNITS in Pre-Filled Syringe 1 EACH SC SCH (21:37)
[2020-07-13 09:05] LABS: #Basophils 0.1 thou/uL (0.0-0.2); #Eosinphils 0.1 thou/uL (0.0-0.7); #Lymphocytes 0.4 thou/uL (1.20-3.40); #Monocytes 0.7 thou/uL (0.11-0.59); #Neutrophils 8.6 thou/uL (1.40-6.50); %Basophils 1.4 % (0.0-1.0); %Eosinophils 1.2 % (0.0-10.0); %Lymphocytes 4.4 % (21.0-51.0); %Monocytes 6.9 % (0.0-10.0); %Neutrophils 86.1 % (42.0-75.0); Hemoglobin 7.8 g/dL (14.0-18.0); Mean Corpuscular HGB CONC 30.7 g/dL (32.0-36.0); Mean Corpuscular Hemoglobin 25.8 pg (27.0-31.0); Mean Corpuscular Volume 83.9 fL (78.0-98.0); Mean Platelet Volume 6.1 fL (7.4-10.4); Platelet Count 568 thou/uL (130-400); Red Blood Cell (RBC) Count 3.03 mill/uL (4.70-6.10); White Blood Cell (WBC) Count 9.9 thou/uL (4.8-10.8)
[2020-07-13 09:27] LABS: Anion Gap 13 mmol/L (10-20); BUN (Urea Nitrogen) 39 mg/dL (8.4-25.7); Calc. Creatinine Clearance 48 mL/min (70-130); Calcium 8.3 mg/dL (7.8-10.44); Carbon Dioxide 27 mmol/L (23-31); Chloride 102 mmol/L (98-107); Estimated GFR-MDRD 51; Glucose 130 mg/dL (83-110); Potassium 3.7 mmol/L (3.5-5.1); Sodium 138 mmol/L (136-145)
[2020-07-13] MEDS: Insulin Regular 300 UNITS/3 ML VIAL SC SCH (09:29)
[2020-07-13] MEDS: Saccharomyces boulardii 250 MG CAP PO SCH (09:30)
[2020-07-13] MEDS: Heparin 5,000 UNITS/ML VIAL SC SCH ×2 (09:30→21:04)
[2020-07-13] MEDS: Sulfameth/Trimethoprim DS 800-160mg TAB PO SCH ×2 (09:30→21:04)
[2020-07-13] MEDS: Furosemide 40 MG/4 ML VIAL SLOW IVP SCH ×2 (09:30→21:05)
[2020-07-13] MEDS: Tamsulosin HCl 0.4 MG CAP PO SCH (09:30)
[2020-07-13] MEDS: glipiZIDE 10 MG TAB PO SCH ×2 (09:30→15:54)
[2020-07-13] MEDS: Rosuvastatin 20 MG TAB PO SCH (09:30)
[2020-07-13] MEDS: Fluconazole 100 MG TAB PO SCH (09:31)
[2020-07-13] MEDS: Acetaminophen 500 MG TAB PO PRN ×2 (15:54→21:05)
--- NOTE | 2020-07-13 16:30 | PDOC.HOSPP ---
- Subjective Encounter Date: 07/13/20 Encounter Time: 16:28 Subjective: Mr. Villeda was seen today in follow-up of cellulitis of the lower extremities, and bladder mass, with obstructive uropathy. He notes less ain in his legs. He is trying to decide on Home with Home health, or Hospice, or to go to a facility. - Objective Vital Signs & Weight: Vital Signs (12 hours) Temp Pulse Resp BP Pulse Ox 07/13/20 08:00 97.8 F 88 16 135/63 95 Weight Admit Weight 171 lb 12.8 oz Weight 171 lb 12.8 oz I&O: 07/12/20 07/13/20 07/14/20 06:59 06:59 06:59 Intake Total 2410 1900 240 Output Total 5358 3400 Balance -2965 -1500 240 Result Diagrams: 07/13/20 08:47 07/13/20 08:47 Additional Labs: Accuchecks 07/13/20 07/13/20 07/13/20 15:58 10:53 06:08 POC Glucose 170 H 204 H 109 H 07/12/20 07/12/20 07/11/20 20:32 17:26 13:21 POC Glucose 157 H 212 H 104 H Hospitalist ROS - Medication Medications: Active Medications Generic Name Dose Route Start Last Admin Trade Name Freq PRN Reason Stop Dose Admin Acetaminophen 1,000 mg 07/09/20 20:04 07/12/20 21:36 Acetaminophen 500 Mg Tab PO 1,000 mg Q6H PRN Administration Mild Pain (1-3) Fluconazole 100 mg 07/13/20 09:00 07/13/20 09:31 Fluconazole 100 Mg Tab PO 100 mg DAILY BRODERICK Administration Furosemide 40 mg 07/09/20 21:00 07/13/20 09:30 Furosemide 40 Mg/4 Ml Vial SLOW IVP 40 mg Q12HR BRODERICK Administration Glipizide 10 mg 07/10/20 08:00 07/13/20 09:30 Glipizide 10 Mg Tab PO 10 mg BID-WM BRODERICK Administration Heparin Sodium (Porcine) 5,000 units 07/10/20 21:00 07/13/20 09:30 Heparin 5,000 Units/Ml Vial SC 5,000 units BID BRODERICK Administration Insulin Glargine 25 units/ 0.25 mls @ 0 mls/hr 07/09/20 21:00 07/12/20 21:37 Miscellaneous Medication SC 0.25 mls HS BRODERICK Administration Insulin Human Regular 0 units 07/09/20 20:03 07/12/20 17:33 Insulin Regular 300 Units/3 Ml Vial SC 3 unit .MILD SLIDING SCALE PRN Administration Mild Correctional Scale Insulin Human Regular 0 units 07/09/20 20:03 07/11/20 20:58 Insulin Regular 300 Units/3 Ml Vial SC 3 unit .BEDTIME SLIDING SC PRN Administration Bedtime Correctional Scale Insulin Human Regular 5 units 07/10/20 07:30 07/13/20 09:29 Insulin Regular 300 Units/3 Ml Vial SC 5 unit DAILY-AC BRODERICK Administration Metoprolol Succinate 25 mg 07/10/20 09:00 07/13/20 09:38 Metoprolol Succinate Xl 25 Mg Tab PO 25 mg DAILY BRODERICK Administration Pantoprazole Sodium 40 mg 07/09/20 21:00 07/13/20 09:30 Pantoprazole 40 Mg Tab PO 40 mg BID BRODERICK Administration Rosuvastatin Calcium 20 mg 07/10/20 09:00 07/13/20 09:30 Rosuvastatin 20 Mg Tab PO 20 mg DAILY BRODERICK Administration Saccharomyces Boulardii 250 mg 07/13/20 09:00 07/13/20 09:30 Saccharomyces Boulardii 250 Mg Cap PO 250 mg DAILY BRODERICK Administration Sodium Chloride 10 ml 07/11/20 21:00 07/13/20 09:31 Flush - Normal Saline 10 Ml Syringe IVF 10 ml Q12HR BRODERICK Administration Tamsulosin HCl 0.4 mg 07/10/20 09:00 07/13/20 09:30 Tamsulosin Hcl 0.4 Mg Cap PO 0.4 mg DAILY BORDERICK Administration Tramadol HCl 50 mg 07/09/20 20:04 07/11/20 14:37 Tramadol Hcl 50 Mg Tab PO 50 mg Q8H PRN Administration Moderate Pain (4-6) Trimethoprim/Sulfamethoxazole 1 tab 07/13/20 09:00 07/13/20 09:30 Sulfameth/Trimethoprim Ds 800-160mg Tab PO 1 tab BID BRODERICK Administration - Exam Eye: PERRL, anicteric sclera Heart: RRR, no murmur, no gallops, no rubs, normal peripheral pulses Respiratory: CTAB, no wheezes, no rales, no ronchi, normal chest expansion, no tachypnea, normal percussion Gastrointestinal: soft, non-tender, non-distended, normal bowel sounds, no palpable masses, no hepatomegaly Extremities: no cyanosis, 1+ LE edema Hosp A/P (1) Cellulitis of both lower extremities Code(s): L03.115 - CELLULITIS OF RIGHT LOWER LIMB; L03.116 - CELLULITIS OF LEFT LOWER LIMB Status: Acute (2) Chronic venous stasis Code(s): I87.8 - OTHER SPECIFIED DISORDERS OF [place] Status: Acute (3) CAD (coronary artery disease) Code(s): I25.10 - ATHSCL HEART DISEASE OF [place] CORONARY ARTERY W/O ANG PCTRS Status: Acute (4) Diabetes mellitus type 2 in nonobese Code(s): E11.9 - TYPE 2 DIABETES MELLITUS WITHOUT COMPLICATIONS Status: Chronic (5) Hypertension Code(s): I10 - ESSENTIAL (PRIMARY) HYPERTENSION Status: Chronic (6) Obstructive uropathy Code(s): N13.9 - OBSTRUCTIVE AND REFLUX UROPATHY, UNSPECIFIED Status: Acute (7) Prostate enlargement Code(s): N40.0 - BENIGN PROSTATIC HYPERPLASIA WITHOUT LOWER URINRY TRACT SYMP Status: Chronic (8) Acute kidney injury Code(s): N17.9 - ACUTE KIDNEY FAILURE, UNSPECIFIED Status: Acute - Plan * Chronic venous stasis changes with cellulitis- will transition him to Bactrim and continue Diflucan * Continue local wound care * DM- blood glucose is stable * Obstructive Uropathy -due to a large bladder mass- this has been partial resected. awaiting pathology. Mr. Villeda says he will not week treatment if it is malignant. He is deciding on discharge placement. Palliative Care is involved as well * CAD- stable
[2020-07-13] MEDS: Insulin Glargine 25 UNITS in Pre-Filled Syringe 1 EACH SC SCH (21:05)
[2020-07-14 04:48] LABS: #Lymphocytes 0.7 thou/uL (1.20-3.40); #Monocytes 0.9 thou/uL (0.11-0.59); #Neutrophils 6.8 thou/uL (1.40-6.50); %Basophils 0.2 % (0.0-1.0); %Eosinophils 0.5 % (0.0-10.0); %Lymphocytes 7.7 % (21.0-51.0); %Neutrophils 80.7 % (42.0-75.0); Hemoglobin 7.7 g/dL (14.0-18.0); Mean Corpuscular HGB CONC 31.1 g/dL (32.0-36.0); Mean Corpuscular Hemoglobin 25.7 pg (27.0-31.0); Mean Corpuscular Volume 82.4 fL (78.0-98.0); Mean Platelet Volume 6.5 fL (7.4-10.4); Platelet Count 577 thou/uL (130-400); RBC Distribution Width 14.3 % (11.5-14.5); Red Blood Cell (RBC) Count 3.01 mill/uL (4.70-6.10); White Blood Cell (WBC) Count 8.5 thou/uL (4.8-10.8)
[2020-07-14 05:07] LABS: Anion Gap 14 mmol/L (10-20); BUN (Urea Nitrogen) 29 mg/dL (8.4-25.7); Calc. Creatinine Clearance 50 mL/min (70-130); Calcium 8.3 mg/dL (7.8-10.44); Carbon Dioxide 25 mmol/L (23-31); Chloride 101 mmol/L (98-107); Estimated GFR-MDRD 54; Potassium 3.3 mmol/L (3.5-5.1); Sodium 137 mmol/L (136-145)
[2020-07-14 05:10] LABS: Glucose 53 mg/dL (83-110)
[2020-07-14] MEDS: glipiZIDE 10 MG TAB PO SCH (08:29)
[2020-07-14] MEDS: Fluconazole 100 MG TAB PO SCH (08:29)
[2020-07-14] MEDS: Tamsulosin HCl 0.4 MG CAP PO SCH (08:29)
[2020-07-14] MEDS: Saccharomyces boulardii 250 MG CAP PO SCH (08:29)
[2020-07-14] MEDS: Rosuvastatin 20 MG TAB PO SCH (08:29)
[2020-07-14] MEDS: Furosemide 40 MG/4 ML VIAL SLOW IVP SCH ×2 (08:30→20:28)
[2020-07-14] MEDS: Sulfameth/Trimethoprim DS 800-160mg TAB PO SCH ×2 (08:30→20:28)
[2020-07-14] MEDS: Heparin 5,000 UNITS/ML VIAL SC SCH ×2 (08:30→20:28)
[2020-07-14] MEDS: Insulin Regular 300 UNITS/3 ML VIAL SC SCH (08:31)
[2020-07-14] MEDS: Acetaminophen 500 MG TAB PO PRN ×3 (08:37→20:28)
--- NOTE | 2020-07-14 17:22 | PDOC.HOSPP ---
- Subjective Encounter Date: 07/14/20 Encounter Time: 16:00 Subjective: no pain in his legs and feels better there his nephew is in the room and patient wants me to update him - Objective Vital Signs & Weight: Vital Signs (12 hours) Temp Pulse Resp BP Pulse Ox 07/14/20 08:00 96.8 F L 85 16 133/63 96 Weight Admit Weight 171 lb 12.8 oz Weight 171 lb 12.8 oz I&O: 07/13/20 07/14/20 07/15/20 06:59 06:59 06:59 Intake Total 1900 2960 900 Output Total 3400 3982 1350 Balance -1500 -715 -450 Result Diagrams: 07/14/20 04:29 07/14/20 04:14 Additional Labs: Accuchecks 07/14/20 07/14/20 07/14/20 17:00 11:17 06:19 POC Glucose 85 142 H 171 H 07/13/20 21:01 POC Glucose 109 H Hospitalist ROS - Medication Medications: Active Medications Generic Name Dose Route Start Last Admin Trade Name Freq PRN Reason Stop Dose Admin Acetaminophen 1,000 mg 07/09/20 20:04 07/14/20 16:23 Acetaminophen 500 Mg Tab PO 1,000 mg Q6H PRN Administration Mild Pain (1-3) Fluconazole 100 mg 07/13/20 09:00 07/14/20 08:29 Fluconazole 100 Mg Tab PO 100 mg DAILY BRODERICK Administration Furosemide 40 mg 07/09/20 21:00 07/14/20 08:30 Furosemide 40 Mg/4 Ml Vial SLOW IVP 40 mg Q12HR BRODERICK Administration Heparin Sodium (Porcine) 5,000 units 07/10/20 21:00 07/14/20 08:30 Heparin 5,000 Units/Ml Vial SC 5,000 units BID BRODERICK Administration Insulin Human Regular 0 units 07/09/20 20:03 07/12/20 17:33 Insulin Regular 300 Units/3 Ml Vial SC 3 unit .MILD SLIDING SCALE PRN Administration Mild Correctional Scale Insulin Human Regular 0 units 07/09/20 20:03 07/11/20 20:58 Insulin Regular 300 Units/3 Ml Vial SC 3 unit .BEDTIME SLIDING SC PRN Administration Bedtime Correctional Scale Insulin Human Regular 5 units 07/10/20 07:30 07/14/20 08:31 Insulin Regular 300 Units/3 Ml Vial SC 5 unit DAILY-AC BRODERICK Administration Metoprolol Succinate 25 mg 07/10/20 09:00 07/14/20 08:29 Metoprolol Succinate Xl 25 Mg Tab PO 25 mg DAILY BRODERICK Administration Pantoprazole Sodium 40 mg 07/09/20 21:00 07/14/20 08:30 Pantoprazole 40 Mg Tab PO 40 mg BID BRODERICK Administration Rosuvastatin Calcium 20 mg 07/10/20 09:00 07/14/20 08:29 Rosuvastatin 20 Mg Tab PO 20 mg DAILY BRODERICK Administration Saccharomyces Boulardii 250 mg 07/13/20 09:00 07/14/20 08:29 Saccharomyces Boulardii 250 Mg Cap PO 250 mg DAILY BRODERICK Administration Sodium Chloride 10 ml 07/11/20 21:00 07/14/20 09:00 Flush - Normal Saline 10 Ml Syringe IVF 10 ml Q12HR BRODERICK Administration Tamsulosin HCl 0.4 mg 07/10/20 09:00 07/14/20 08:29 Tamsulosin Hcl 0.4 Mg Cap PO 0.4 mg DAILY BRODERICK Administration Tramadol HCl 50 mg 07/09/20 20:04 07/11/20 14:37 Tramadol Hcl 50 Mg Tab PO 50 mg Q8H PRN Administration Moderate Pain (4-6) Trimethoprim/Sulfamethoxazole 1 tab 07/13/20 09:00 07/14/20 08:30 Sulfameth/Trimethoprim Ds 800-160mg Tab PO 1 tab BID BRODERCIK Administration - Exam General Appearance: awake alert General - other findings: pallor+ Eye: PERRL, anicteric sclera ENT: no oropharyngeal lesions, moist mucosa Neck: supple, no JVD Heart: RRR, no murmur Respiratory: no wheezes, no rales Gastrointestinal: soft, non-tender, non-distended, normal bowel sounds Extremities: no edema Extremities - other findings: has compression bandage to both LE Neurological: cranial nerve grossly intact, no new deficit Hosp A/P (1) 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 transplanted heart: [place] heart Associated angina: without angina Qualified Code(s): I25.10 - Atherosclerotic heart disease of [place] coronary artery without angina pectoris (4) Cellulitis of both lower extremities Code(s): L03.115 - CELLULITIS OF RIGHT LOWER LIMB; L03.116 - CELLULITIS OF LEFT LOWER LIMB Status: Acute (5) Chronic venous stasis Code(s): I87.8 - OTHER SPECIFIED DISORDERS OF VEINS Status: Chronic (6) Obstructive uropathy Code(s): N13.9 - OBSTRUCTIVE AND REFLUX UROPATHY, UNSPECIFIED Status: Acute (7) Diabetes mellitus type 2 in nonobese Code(s): E11.9 - TYPE 2 DIABETES MELLITUS WITHOUT COMPLICATIONS Status: Chronic (8) Hypertension Code(s): I10 - ESSENTIAL (PRIMARY) HYPERTENSION Status: Chronic Qualifiers: Hypertension type: essential hypertension Qualified Code(s): I10 - Essential (primary) hypertension - Plan d/w extensively with patient and his nephew at bedside about histopath diagnosis and the plans if he is interested in. patient has again expressed he does not want nephrostomy tubes and is averse to chemotherapy or radiation he is willing to talk to onc if he has a good option with mild side effects, again he is not sure about this either dc planning, either placement or asst living or HH with nursing, CM consultation hemostable last 24hrs urine output from [facility] is around 3500mls.
[2020-07-14] MEDS: Insulin Glargine 10 UNITS in Pre-Filled Syringe 1 EACH SC SCH (20:27)
[2020-07-15] MEDS: traMADol HCl 50 MG TAB PO PRN (02:22)
[2020-07-15] MEDS: Rosuvastatin 20 MG TAB PO SCH (08:08)
[2020-07-15] MEDS: Sulfameth/Trimethoprim DS 800-160mg TAB PO SCH ×2 (08:08→21:47)
[2020-07-15] MEDS: Tamsulosin HCl 0.4 MG CAP PO SCH (08:09)
[2020-07-15] MEDS: Fluconazole 100 MG TAB PO SCH (08:09)
[2020-07-15] MEDS: Saccharomyces boulardii 250 MG CAP PO SCH (08:09)
[2020-07-15] MEDS: Heparin 5,000 UNITS/ML VIAL SC SCH ×2 (08:09→21:48)
[2020-07-15] MEDS: Furosemide 40 MG/4 ML VIAL SLOW IVP SCH ×2 (08:11→21:48)
[2020-07-15] MEDS: Insulin Regular 300 UNITS/3 ML VIAL SC SCH (09:11)
--- NOTE | 2020-07-15 11:18 | PDOC.HOSPP ---
- Subjective Encounter Date: 07/15/20 Encounter Time: 11:15 Subjective: no sob or pain feels better - Objective Vital Signs & Weight: Vital Signs (12 hours) Temp Pulse Resp BP Pulse Ox 07/15/20 08:00 99.9 F H 85 16 136/62 96 Weight Admit Weight 171 lb 12.8 oz Weight 171 lb 12.8 oz I&O: 07/14/20 07/15/20 07/16/20 06:59 06:59 06:59 Intake Total 2960 1620 Output Total 9232 4182 Balance -060 -2719 Result Diagrams: 07/14/20 04:29 07/14/20 04:14 Additional Labs: Accuchecks 07/15/20 07/15/20 07/14/20 10:47 09:10 20:24 POC Glucose 93 158 H 153 H 07/14/20 07/14/20 17:00 11:17 POC Glucose 85 142 H Hospitalist ROS - Medication Medications: Active Medications Generic Name Dose Route Start Last Admin Trade Name Freq PRN Reason Stop Dose Admin Acetaminophen 1,000 mg 07/09/20 20:04 07/14/20 20:28 Acetaminophen 500 Mg Tab PO 1,000 mg Q6H PRN Administration Mild Pain (1-3) Fluconazole 100 mg 07/13/20 09:00 07/15/20 08:09 Fluconazole 100 Mg Tab PO 100 mg DAILY BRODERICK Administration Furosemide 40 mg 07/09/20 21:00 07/15/20 08:11 Furosemide 40 Mg/4 Ml Vial SLOW IVP 40 mg Q12HR BRODERICK Administration Heparin Sodium (Porcine) 5,000 units 07/10/20 21:00 07/15/20 08:09 Heparin 5,000 Units/Ml Vial SC 5,000 units BID BRODERICK Administration Insulin Glargine 10 units/ 0.1 mls @ 0 mls/hr 07/14/20 21:00 07/14/20 20:27 Miscellaneous Medication SC 0.1 mls HS BRODERICK Administration Insulin Human Regular 0 units 07/09/20 20:03 07/12/20 17:33 Insulin Regular 300 Units/3 Ml Vial SC 3 unit .MILD SLIDING SCALE PRN Administration Mild Correctional Scale Insulin Human Regular 0 units 07/09/20 20:03 07/11/20 20:58 Insulin Regular 300 Units/3 Ml Vial SC 3 unit .BEDTIME SLIDING SC PRN Administration Bedtime Correctional Scale Insulin Human Regular 5 units 07/10/20 07:30 07/15/20 09:11 Insulin Regular 300 Units/3 Ml Vial SC 5 unit DAILY-AC BRODERICK Administration Metoprolol Succinate 25 mg 07/10/20 09:00 07/15/20 08:11 Metoprolol Succinate Xl 25 Mg Tab PO 25 mg DAILY BRODERICK Administration Pantoprazole Sodium 40 mg 07/09/20 21:00 07/15/20 08:11 Pantoprazole 40 Mg Tab PO 40 mg BID BRODERICK Administration Rosuvastatin Calcium 20 mg 07/10/20 09:00 07/15/20 08:08 Rosuvastatin 20 Mg Tab PO 20 mg DAILY BRODERICK Administration Saccharomyces Boulardii 250 mg 07/13/20 09:00 07/15/20 08:09 Saccharomyces Boulardii 250 Mg Cap PO 250 mg DAILY BRODERICK Administration Sodium Chloride 10 ml 07/11/20 21:00 07/14/20 20:29 Flush - Normal Saline 10 Ml Syringe IVF 10 ml Q12HR BRODERICK Administration Tamsulosin HCl 0.4 mg 07/10/20 09:00 07/15/20 08:09 Tamsulosin Hcl 0.4 Mg Cap PO 0.4 mg DAILY BRODERICK Administration Tramadol HCl 50 mg 07/09/20 20:04 07/15/20 02:22 Tramadol Hcl 50 Mg Tab PO 50 mg Q8H PRN Administration Moderate Pain (4-6) Trimethoprim/Sulfamethoxazole 1 tab 07/13/20 09:00 07/15/20 08:08 Sulfameth/Trimethoprim Ds 800-160mg Tab PO 1 tab BID BRODERICK Administration - Exam General Appearance: awake alert Eye: PERRL, anicteric sclera ENT: no oropharyngeal lesions, moist mucosa Neck: supple, no JVD Heart: RRR, no murmur Respiratory: no wheezes, no rales Gastrointestinal: soft, non-tender, non-distended, normal bowel sounds Extremities: no cyanosis Extremities - other findings: has b/l compression bandage on LE Neurological: cranial nerve grossly intact, no focal deficits Hosp A/P (1) 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 transplanted heart: [place] heart Associated angina: without angina Qualified Code(s): I25.810 - Atherosclerosis of coronary artery bypass graft(s) without angina pectoris (4) Cellulitis of both lower extremities Code(s): L03.115 - CELLULITIS OF RIGHT LOWER LIMB; L03.116 - CELLULITIS OF LEFT LOWER LIMB Status: Acute (5) Chronic venous stasis Code(s): I87.8 - OTHER SPECIFIED DISORDERS OF VEINS Status: Chronic (6) Obstructive uropathy Code(s): N13.9 - OBSTRUCTIVE AND REFLUX UROPATHY, UNSPECIFIED Status: Acute (7) Diabetes mellitus type 2 in nonobese Code(s): E11.9 - TYPE 2 DIABETES MELLITUS WITHOUT COMPLICATIONS Status: Chronic (8) Hypertension Code(s): I10 - ESSENTIAL (PRIMARY) HYPERTENSION Status: Chronic Qualifiers: Hypertension type: essential hypertension Qualified Code(s): I10 - Essential (primary) hypertension - Plan d/w extensively with patient and his nephew at bedside about histopath diagnosis and the plans if he is interested in 07/14/2020. patient has again expressed he does not want nephrostomy tubes and is averse to chemotherapy or radiation he is willing to talk to onc if he has a good option with mild side effects, again he is not sure about this either dc planning, either placement or asst living or HH with nursing, CM consultation hemostable is having good urine output with connell. dc plan in am
[2020-07-15] MEDS: Acetaminophen 500 MG TAB PO PRN ×2 (14:59→21:47)
[2020-07-15] MEDS: Insulin Regular 300 UNITS/3 ML VIAL SC PRN (17:58)
[2020-07-15] MEDS: Insulin Glargine 10 UNITS in Pre-Filled Syringe 1 EACH SC SCH (21:47)
[2020-07-16] MEDS: Insulin Regular 300 UNITS/3 ML VIAL SC SCH (08:37)
[2020-07-16] MEDS: Furosemide 40 MG/4 ML VIAL SLOW IVP SCH ×2 (08:38→19:56)
[2020-07-16] MEDS: Saccharomyces boulardii 250 MG CAP PO SCH (08:38)
[2020-07-16] MEDS: Tamsulosin HCl 0.4 MG CAP PO SCH (08:38)
[2020-07-16] MEDS: Heparin 5,000 UNITS/ML VIAL SC SCH ×2 (08:38→20:05)
[2020-07-16] MEDS: Acetaminophen 500 MG TAB PO PRN ×3 (08:38→22:44)
[2020-07-16] MEDS: Sulfameth/Trimethoprim DS 800-160mg TAB PO SCH ×2 (08:38→19:55)
[2020-07-16] MEDS: Fluconazole 100 MG TAB PO SCH (08:38)
[2020-07-16] MEDS: Rosuvastatin 20 MG TAB PO SCH (08:38)
[2020-07-16] MEDS: Insulin Regular 300 UNITS/3 ML VIAL SC PRN ×2 (11:56→16:59)
--- NOTE | 2020-07-16 13:22 | PDOC.HOSPP ---
- Subjective Encounter Date: 07/16/20 Encounter Time: 11:15 Subjective: feels better, no complaints - Objective Vital Signs & Weight: Vital Signs (12 hours) Temp Pulse Resp BP Pulse Ox 07/16/20 08:00 98.4 F 84 16 128/60 95 Weight Admit Weight 171 lb 12.8 oz Weight 171 lb 12.8 oz I&O: 07/15/20 07/16/20 07/17/20 06:59 06:59 06:59 Intake Total 1620 1460 420 Output Total 3375 1425 Balance -1755 35 420 Result Diagrams: 07/14/20 04:29 07/14/20 04:14 Additional Labs: Accuchecks 07/16/20 07/16/20 07/15/20 11:28 06:28 21:11 POC Glucose 289 H 131 H 144 H 07/15/20 07/15/20 16:33 06:20 POC Glucose 150 H 82 Hospitalist ROS - Medication Medications: Active Medications Generic Name Dose Route Start Last Admin Trade Name Freq PRN Reason Stop Dose Admin Acetaminophen 1,000 mg 07/09/20 20:04 07/16/20 08:38 Acetaminophen 500 Mg Tab PO 1,000 mg Q6H PRN Administration Mild Pain (1-3) Fluconazole 100 mg 07/13/20 09:00 07/16/20 08:38 Fluconazole 100 Mg Tab PO 100 mg DAILY BRODERICK Administration Furosemide 40 mg 07/09/20 21:00 07/16/20 08:38 Furosemide 40 Mg/4 Ml Vial SLOW IVP 40 mg Q12HR BRODERICK Administration Heparin Sodium (Porcine) 5,000 units 07/10/20 21:00 07/16/20 08:38 Heparin 5,000 Units/Ml Vial SC 5,000 units BID BRODERICK Administration Insulin Glargine 10 units/ 0.1 mls @ 0 mls/hr 07/14/20 21:00 07/15/20 21:47 Miscellaneous Medication SC 0.1 mls HS BRODERICK Administration Insulin Human Regular 0 units 07/09/20 20:03 07/16/20 11:56 Insulin Regular 300 Units/3 Ml Vial SC 4 unit .MILD SLIDING SCALE PRN Administration Mild Correctional Scale Insulin Human Regular 0 units 07/09/20 20:03 07/11/20 20:58 Insulin Regular 300 Units/3 Ml Vial SC 3 unit .BEDTIME SLIDING SC PRN Administration Bedtime Correctional Scale Insulin Human Regular 5 units 07/10/20 07:30 07/16/20 08:37 Insulin Regular 300 Units/3 Ml Vial SC 5 unit DAILY-AC BRODERICK Administration Metoprolol Succinate 25 mg 07/10/20 09:00 07/16/20 08:38 Metoprolol Succinate Xl 25 Mg Tab PO Not Given DAILY BRODERICK Pantoprazole Sodium 40 mg 07/09/20 21:00 07/16/20 08:37 Pantoprazole 40 Mg Tab PO 40 mg BID BRODERICK Administration Rosuvastatin Calcium 20 mg 07/10/20 09:00 07/16/20 08:38 Rosuvastatin 20 Mg Tab PO 20 mg DAILY BRODERICK Administration Saccharomyces Boulardii 250 mg 07/13/20 09:00 07/16/20 08:38 Saccharomyces Boulardii 250 Mg Cap PO 250 mg DAILY BRODERICK Administration Sodium Chloride 10 ml 07/11/20 21:00 07/16/20 08:39 Flush - Normal Saline 10 Ml Syringe IVF 10 ml Q12HR BRODERICK Administration Tamsulosin HCl 0.4 mg 07/10/20 09:00 07/16/20 08:38 Tamsulosin Hcl 0.4 Mg Cap PO 0.4 mg DAILY BRODERICK Administration Tramadol HCl 50 mg 07/09/20 20:04 07/15/20 02:22 Tramadol Hcl 50 Mg Tab PO 50 mg Q8H PRN Administration Moderate Pain (4-6) Trimethoprim/Sulfamethoxazole 1 tab 07/13/20 09:00 07/16/20 08:38 Sulfameth/Trimethoprim Ds 800-160mg Tab PO 1 tab BID BRODERICK Administration - Exam General Appearance: awake alert Eye: PERRL, anicteric sclera ENT: no oropharyngeal lesions, moist mucosa Neck: supple, no JVD Heart: RRR, no murmur Respiratory: no wheezes, no rales Gastrointestinal: soft, non-tender, non-distended, normal bowel sounds Extremities: no cyanosis, no edema Neurological: cranial nerve grossly intact, no focal deficits Hosp A/P (1) 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 transplanted heart: [place] heart Associated angina: without angina Qualified Code(s): I25.810 - Atherosclerosis of coronary artery bypass graft(s) without angina pectoris (4) Cellulitis of both lower extremities Code(s): L03.115 - CELLULITIS OF RIGHT LOWER LIMB; L03.116 - CELLULITIS OF LEFT LOWER LIMB Status: Acute (5) Chronic venous stasis Code(s): I87.8 - OTHER SPECIFIED DISORDERS OF VEINS Status: Chronic (6) Obstructive uropathy Code(s): N13.9 - OBSTRUCTIVE AND REFLUX UROPATHY, UNSPECIFIED Status: Acute (7) Diabetes mellitus type 2 in nonobese Code(s): E11.9 - TYPE 2 DIABETES MELLITUS WITHOUT COMPLICATIONS Status: Chronic (8) Hypertension Code(s): I10 - ESSENTIAL (PRIMARY) HYPERTENSION Status: Chronic Qualifiers: Hypertension type: essential hypertension Qualified Code(s): I10 - Essential (primary) hypertension - Plan d/w extensively with patient and his nephew at bedside about histopath diagnosis and the plans if he is interested in 07/14/2020. patient has again expressed he does not want nephrostomy tubes and is averse to chemotherapy or radiation he is willing to talk to onc if he has a good option with mild side effects, again he is not sure about this either dc planning, placement at [facility] consultation hemostable is having good urine output with connell. dc when placement is ready
[2020-07-16] MEDS: traMADol HCl 50 MG TAB PO PRN (19:55)
[2020-07-16] MEDS: Insulin Glargine 10 UNITS in Pre-Filled Syringe 1 EACH SC SCH (19:57)
[2020-07-17] MEDS: traMADol HCl 50 MG TAB PO PRN ×2 (04:04→22:02)
[2020-07-17] MEDS: Insulin Regular 300 UNITS/3 ML VIAL SC PRN ×2 (05:35→17:16)
[2020-07-17] MEDS: Heparin 5,000 UNITS/ML VIAL SC SCH ×2 (08:26→20:50)
[2020-07-17] MEDS: Sulfameth/Trimethoprim DS 800-160mg TAB PO SCH ×2 (08:27→20:50)
[2020-07-17] MEDS: Saccharomyces boulardii 250 MG CAP PO SCH (08:27)
[2020-07-17] MEDS: Insulin Regular 300 UNITS/3 ML VIAL SC SCH (08:27)
[2020-07-17] MEDS: Rosuvastatin 20 MG TAB PO SCH (08:27)
[2020-07-17] MEDS: Furosemide 40 MG/4 ML VIAL SLOW IVP SCH ×2 (08:27→20:50)
[2020-07-17] MEDS: Tamsulosin HCl 0.4 MG CAP PO SCH (08:27)
[2020-07-17] MEDS: Fluconazole 100 MG TAB PO SCH (08:27)
--- NOTE | 2020-07-17 12:00 | PDOC.FMACP ---
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 Status: Acute Code(s): C67.9 - MALIGNANT NEOPLASM OF BLADDER, UNSPECIFIED (4) Chronic venous stasis Status: Chronic Code(s): I87.8 - OTHER SPECIFIED DISORDERS OF VEINS (5) Diabetes mellitus type 2 in nonobese Status: Chronic Code(s): E11.9 - TYPE 2 DIABETES MELLITUS WITHOUT COMPLICATIONS (6) Hypertension Status: Chronic Code(s): I10 - ESSENTIAL (PRIMARY) HYPERTENSION Qualifiers: Hypertension type: essential hypertension Qualified Code(s): I10 - Essential (primary) hypertension - Note Participants: patient, family, palliative care Summary: Palliative Care discussed Advanced Care Planning, opportunity to decline. The diagnosis, prognosis and goals of care were discussed. Appropriate forms and documentation to accomplish the goals of care were discussed. All questions were answered. Mr Villeda confirms DNAR status and had elected to also complete an OOHDNAR. MPOA in place. Hopeful for transition to Skilled setting in [place] near [facility]. The Palliative Care Team will be engaged to assist with completion of any outstanding forms that are needed. Please also refer to Palliative Care notes in note section. Time Spent (mins): 15
[2020-07-17] MEDS: Insulin Glargine 10 UNITS in Pre-Filled Syringe 1 EACH SC SCH (20:50)
[2020-07-17] MEDS: Acetaminophen 500 MG TAB PO PRN (20:52)
[2020-07-18] MEDS: Insulin Regular 300 UNITS/3 ML VIAL SC SCH (06:33)
[2020-07-18 07:56] VITALS: BP 118/63; TEMP 97
[2020-07-18] MEDS: Fluconazole 100 MG TAB PO SCH (09:02)
[2020-07-18] MEDS: Sulfameth/Trimethoprim DS 800-160mg TAB PO SCH (09:02)
[2020-07-18] MEDS: Tamsulosin HCl 0.4 MG CAP PO SCH (09:02)
[2020-07-18] MEDS: Saccharomyces boulardii 250 MG CAP PO SCH (09:03)
[2020-07-18] MEDS: Furosemide 40 MG/4 ML VIAL SLOW IVP SCH (09:03)
[2020-07-18] MEDS: Heparin 5,000 UNITS/ML VIAL SC SCH (09:03)
[2020-07-18] MEDS: Rosuvastatin 20 MG TAB PO SCH (09:03)
--- NOTE | 2020-07-18 14:43 | PDOC.HOSPP ---
- Subjective Encounter Date: 07/17/20 Encounter Time: 11:00 Subjective: feels fine, no complaints has blood in his catheter, just a tinge - Objective Vital Signs & Weight: Vital Signs (12 hours) Temp Pulse Resp BP Pulse Ox 07/18/20 07:55 97.0 F L 77 14 118/63 93 L Weight Admit Weight 171 lb 12.8 oz Weight 171 lb 12.8 oz I&O: 07/17/20 07/18/20 07/19/20 06:59 06:59 06:59 Intake Total 1610 900 Output Total 3050 8602 750 Balance -1440 -1025 -750 Result Diagrams: 07/14/20 04:29 07/14/20 04:14 Additional Labs: Accuchecks 07/18/20 07/17/20 07/17/20 06:21 20:47 16:45 POC Glucose 128 H 143 H 300 H - Exam General Appearance: awake alert Eye: PERRL, anicteric sclera ENT: no oropharyngeal lesions, moist mucosa Neck: supple, no JVD Heart: RRR, no murmur Respiratory: no wheezes, no rales Gastrointestinal: soft, non-tender, non-distended, normal bowel sounds Extremities: no cyanosis, no edema Neurological: cranial nerve grossly intact, no focal deficits Hosp A/P (1) 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 tr ansplanted heart: [place] heart Associated angina: without angina Qualified Code(s): I25.810 - Atherosclerosis of coronary artery bypass graft(s) without angina pectoris (4) Cellulitis of both lower extremities Code(s): L03.115 - CELLULITIS OF RIGHT LOWER LIMB; L03.116 - CELLULITIS OF LEFT LOWER LIMB Status: Acute (5) Chronic venous stasis Code(s): I87.8 - OTHER SPECIFIED DISORDERS OF VEINS Status: Chronic (6) Obstructive uropathy Code(s): N13.9 - OBSTRUCTIVE AND REFLUX UROPATHY, UNSPECIFIED Status: Acute (7) Diabetes mellitus type 2 in nonobese Code(s): E11.9 - TYPE 2 DIABETES MELLITUS WITHOUT COMPLICATIONS Status: Chronic (8) Hypertension Code(s): I10 - ESSENTIAL (PRIMARY) HYPERTENSION Status: Chronic Qualifiers: Hypertension type: essential hypertension Qualified Code(s): I10 - Essential (primary) hypertension - Plan d/w extensively with patient and his nephew at bedside about histopath diagnosis and the plans if he is interested in 07/14/2020. patient has again expressed he does not want nephrostomy tubes and is averse to chemotherapy or radiation he is willing to talk to onc if he has a good option with mild side effects, again he is not sure about this either dc planning, placement at [facility] in [facility] where his sister is. hemostable is having good urine output with connell, just a tinge of blood likely trauma. dc when placement is ready
--- NOTE | 2020-07-18 15:20 | DIS ---
DATE OF ADMISSION: 07/09/2020 DATE OF DISCHARGE: 07/18/2020 DISCHARGE DISPOSITION: [facility] in [place]. 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 PROCEDURES DONE DURING HOSPITALIZATION: CT abdomen and pelvis with IV contrast done showed obstructive uropathy with severe bilateral hydronephrosis and hydroureters. Prostatic enlargement was noticed. There was severe bladder wall thickening on the CAT scan. On 07/11/2020, the patient has had transurethral resection of large bladder tumor done by Dr. Basilio. Histopathology of the bladder mass showed invasive high-grade urothelial carcinoma. Invasion of muscularis propria was identified. Urine culture, no growth. Initial white count of 16. Discharge white count of 8. H and H 7 and 24, platelet count of 577, MCV 82. Discharge BUN and creatinine on the are 29 and 1.2. COVID-19 PCR was not detected on 07/09/2020. DISCHARGE MEDICATIONS: 1. Flomax 0.4 mg p.o. daily. 2. Lantus 25 units subcu at bedtime. 3. Metoprolol succinate extended release 25 mg daily. 4. NovoLog 5 units subcu daily before meals. 5. Protonix 40 mg twice daily. 6. Crestor 20 mg daily. 7. Ultram 50 mg q.8 hourly p.r.n. 8. Oxybutynin 5 mg p.o. 3 times daily p.r.n. for bladder spasms. ALLERGIES: NO KNOWN DRUG ALLERGIES. INPATIENT CONSULTS: Dr. Basilio for Urology, Ms. Agatha Fernandez, nurse practitioner for Oncology. BRIEF COURSE DURING HOSPITALIZATION: The patient initially got admitted on the with complaints of bilateral leg swelling and pain. The patient has had Houser catheter placed nearly 6 days due to urinary retention. A CT of the abdomen and pelvis obtained showed bladder wall thickening with severe hydronephrosis. He has had consultation with Dr. Basilio. The patient has had resection of bladder mass by transurethral resection. Histopathology has revealed high-grade urothelial cancer. Mr. Villeda does not want any chemoradiation or immunotherapy done for the tumor. Mr. Villeda also mentions that he does not want any surgical intervention including nephrostomy tubes. Dr. Basilio and myself have had multiple conversations with him and he has refused to have any further procedures for his bladder tumor. He was living alone prior to hospitalization and in view of current cancer history with needing Houser and likely progression of his cancer, the patient is being discharged to a long term facility in [place], the name of the place is [facility], which is closer to his sister. A total of 35 minutes was spent on discharge plan. Please note, I have seen and examined the patient on the day of discharge. Job ID: [id number]
== END 2020-07-18 10:17 | DRG 669 ==
LOC: ONC 17:28
PROVIDERS: ADMIT Student in an Organized Health Care Education/Training Program; ATTEND Student in an Organized Health Care Education/Training Program
PROC: 0TBC8ZZ Excision of Bladder Neck, Via Natural or Artificial Opening Endoscopic (ICD-10-PCS; principal; 2020-07-11)
PROC: 0T9B80Z Drainage of Bladder with Drainage Device, Via Natural or Artificial Opening Endoscopic (ICD-10-PCS; 2020-07-11)
DX: C67.9 Malignant neoplasm of bladder, unspecified (principal); N13.30 Unspecified hydronephrosis; L03.116 Cellulitis of left lower limb; L03.115 Cellulitis of right lower limb; N17.9 Acute kidney failure, unspecified; N13.8 Other obstructive and reflux uropathy; C79.89 Secondary malignant neoplasm of other specified sites; I25.810 Atherosclerosis of coronary artery bypass graft(s) without angina pectoris; Z66 Do not resuscitate; Z20.828 Contact with and (suspected) exposure to other viral communicable diseases; Z51.5 Encounter for palliative care; E11.9 Type 2 diabetes mellitus without complications; I10 Essential (primary) hypertension; K21.9 Gastro-esophageal reflux disease without esophagitis; I87.2 Venous insufficiency (chronic) (peripheral); D64.9 Anemia, unspecified; N40.1 Benign prostatic hyperplasia with lower urinary tract symptoms; R33.8 Other retention of urine; Z79.4 Long term (current) use of insulin; Z95.1 Presence of aortocoronary bypass graft; Z79.899 Other long term (current) drug therapy
CPT/HCPCS: 36415; 36416; 80048; 80202; 82274; 83540; 85025; 86850; 86900; 86901; 87070; 87077; 87086; 87186; 87205; 87635; 88307; 93970; J0692; J1644; J1815; J1940; J2704; J3010; J3370; J3490; U0003